=== PATIENT | male | born 1970 | race Caucasian/White ===

== ENCOUNTER 2017-10-30 02:09 | Emergency (ER) | payer OTHER ==
--- NOTE | 2017-10-30 02:39 | ED Physician Documentation ---
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 Denies h/o similar symptoms. Review of Systems Constitutional: denies: Fever, Chills, Sweats Cardiac: reports: Reviewed and negative Respiratory: reports: Reviewed and negative GI: reports: Abdominal Pain. denies: Nausea, Vomiting, Constipation, Diarrhea : denies: Dysuria, Frequency, Hematuria Musculoskeletal: denies: Back pain PD PAST MEDICAL HISTORY - Past Medical History Past Medical History: Yes Psych: Anxiety - Past Surgical History Past Surgical History: No - Present Medications Home Medications: Ambulatory Orders Medication Instructions Recorded Confirmed oxyCODONE/ACET 5/325 [Percocet 5 1 - 2 each PO Q6H PRN #14 tablet 10/30/17 mg/325 mg] - Allergies Allergies/Adverse Reactions: Allergies Allergy/AdvReac Type Severity Reaction Status Date / Time No Known Drug Allergies Allergy Verified 10/30/17 02:14 - Social History Does the pt smoke?: No Smoking Status: Never smoker Does the pt drink ETOH?: Yes Does the pt have substance abuse?: No - Immunizations Immunizations are current?: Yes - POLST Patient has POLST: No PD ED PE NORMAL - Vitals Vital signs reviewed: Yes - General General: Alert and oriented X 3, Well developed/nourished, Other (obvious painful distress) - HEENT HEENT: Moist mucous membranes - Neck Neck: Supple, no meningeal sign - Cardiac Cardiac: RRR, No murmur - Respiratory Respiratory: No respiratory distress, Clear bilaterally - Abdomen Abdomen: Soft, Non tender, Non distended - Derm Derm: Normal color, Warm and dry Results - Vitals Vitals: Vital Signs - 24 hr 10/30/17 10/30/17 10/30/17 02:11 03:11 04:13 Temperature 36.2 C L Heart Rate 78 99 88 Respiratory 18 22 16 Rate Blood Pressure 130/79 158/106 H 153/95 H O2 Saturation 98 97 95 10/30/17 06:29 Temperature Heart Rate 86 Respiratory 16 Rate Blood Pressure 147/98 H O2 Saturation 95 Oxygen O2 Source Room air - Labs Labs: Laboratory Tests 10/30/17 10/30/17 10/30/17 02:38 03:05 03:05 WBC 12.9 H RBC 4.86 Hgb 14.5 Hct 42.3 MCV 87.2 MCH 29.8 MCHC 34.2 RDW 12.8 Plt Count 293 MPV 6.8 L Neut # 8.3 H Lymph # 3.4 [place] # 1.0 Eos # 0.2 Baso # 0.1 Absolute Nucleated RBC 0.00 Nucleated RBC % 0.0 Sodium 139 Potassium 3.4 L Chloride 104 Carbon Dioxide 23 Anion Gap 12.0 BUN 13 Creatinine 1.1 Estimated GFR (MDRD) 72 L Glucose 149 H Calcium 9.3 Total Bilirubin 0.5 AST 40 ALT 79 H Alkaline Phosphatase 61 Total Protein 7.5 Albumin 4.2 Globulin 3.3 Albumin/Globulin Ratio 1.3 Lipase 28 Urine Color YELLOW Urine Clarity CLEAR Urine pH 6.0 Ur Specific [place] 1.025 Urine Protein NEGATIVE Urine Glucose (UA) NEGATIVE Urine Ketones NEGATIVE Urine Occult Blood NEGATIVE Urine Nitrite NEGATIVE Urine Bilirubin NEGATIVE Urine Urobilinogen 0.2 (NORMAL) Ur Leukocyte Esterase NEGATIVE Ur Microscopic Review NOT INDICATED Urine Culture Comments NOT INDICATED - Rads (name of study) RUQ US Radiology: Prelim report reviewed, See rad report CT A/P Radiology: Prelim report reviewed, See rad report PD MEDICAL DECISION MAKING - ED course Complexity details: reviewed results, re-evaluated patient, considered differential, d/w patient ED course: RUQ US reveals large gallstone. Due to the severity of his pain, I also then ordered CT A/P (gallstone could be incidental and differential of such severe pain would include volvulus, AAA). Fortunately, no concerning findings on CT A/ P. Eventually, pain was well controlled after toradol, fentanyl, and dilaudid. He remained awake, alert (was not drowsy). Hospitalization not necessary at this time, as pain is controlled, afebrile, reassuring blood tests, and US and CT do not suggest a process beyond cholelithiasis. Instructed to return immediately if worse in any way or new signs/symptoms develop (such as fever, hematemesis). Departure - Departure Disposition: 01 Home, Self Care Clinical Impression: Biliary colic Condition: Good Instructions: ED Gallstone W Biliary Colic Follow-Up: Sly Murphy MD [Provider Admit Priv/Credential] - (Call to arrange for next available appointment) Prescriptions: oxyCODONE/ACET 5/325 [Percocet 5 mg/325 mg] 1 - 2 each PO Q6H PRN #14 tablet PRN Reason: Pain Discharge Date/Time: 10/30/17 06:29
[2017-10-30 02:42] LABS: BILIRUBIN,URINE NEGATIVE (NEGATIVE); GLUCOSE, URINE (UA) NEGATIVE (NEGATIVE); KETONES,URINE (UA) NEGATIVE (NEGATIVE); LEUKOCYTE ESTERASE, URINE NEGATIVE (NEGATIVE); NITRITE,URINE NEGATIVE (NEGATIVE); OCCULT BLOOD,URINE NEGATIVE (NEGATIVE); PROTEIN,URINE NEGATIVE (NEGATIVE); UROBILINOGEN,URINE 0.2 (NORMAL) E.U./dL (NORMAL)
[2017-10-30 02:45] LABS: CLARITY,URINE CLEAR (CLEAR)
[2017-10-30] MEDS ORDERED: ONDANSETRON 4 MG/2 ML VIAL IVP STA (02:51)
[2017-10-30] MEDS ORDERED: KETOROLAC 60 MG/2 ML VIAL IVP STA (02:51)
[2017-10-30] MEDS ORDERED: SODIUM CHLORIDE 0.9% 1,000 ML IV STA (02:52)
[2017-10-30] MEDS ORDERED: fentaNYL 100 MCG/2 ML VIAL IVP STA (03:02)
[2017-10-30] MEDS ORDERED: fentaNYL 100 MCG/2 ML VIAL ONE (03:11)
[2017-10-30 03:18] LABS: BASOPHILS # (AUTO) 0.1 10^3/uL (0.0-0.1); BASOPHILS % (AUTO) 0.6 %; EOSINOPHILS # (AUTO) 0.2 10^3/uL (0.0-0.7); EOSINOPHILS % (AUTO) 1.4 %; HGB - HEMOGLOBIN 14.5 g/dL (14.0-18.0); LYMPHOCYTES # (AUTO) 3.4 10^3/uL (1.5-3.5); LYMPHOCYTES % (AUTO) 26.4 %; MEAN CORPUSCULAR HEMOGLOBIN 29.8 pg (27.0-31.0); MEAN CORPUSCULAR HGB CONC 34.2 g/dL (32.0-36.0); MEAN CORPUSCULAR VOLUME 87.2 fL (80.0-94.0); MEAN PLATELET VOLUME 6.8 fL (7.4-11.4); MONOCYTES % (AUTO) 7.4 %; NEUTROPHILS # (AUTO) 8.3 10^3/uL (1.5-6.6); NEUTROPHILS % (AUTO) 64.2 %; PLT - PLATELET COUNT 293 10^3/uL (130-450); RED BLOOD COUNT 4.86 10^6/uL (4.70-6.10); RED CELL DISTRIBUTION WIDTH 12.8 % (12.0-15.0); WHITE BLOOD COUNT 12.9 x10^3/uL (4.8-10.8)
[2017-10-30] MEDS ORDERED: HYDROmorphone 2 MG/ML VIAL IVP STA (03:28)
[2017-10-30 03:30] LABS: ALBUMIN 4.2 g/dL (3.2-5.5); ALBUMIN/GLOBULIN RATIO 1.3 (1.0-2.2); BILIRUBIN,TOTAL 0.5 mg/dL (0.2-1.0); CALCIUM 9.3 mg/dL (8.5-10.3); CREATININE 1.1 mg/dL (0.6-1.2); TOTAL PROTEIN 7.5 g/dL (6.7-8.2)
[2017-10-30] MEDS ORDERED: IOPAMIDOL-300 100 ML VIAL ONE (03:52)
[2017-10-30] MEDS ORDERED: IOPAMIDOL-300 100 ML VIAL IVP ONE (04:05)
--- NOTE | 2017-10-30 04:25 | Ultrasound Report ---
EXAM: ABDOMEN ULTRASOUND LIMITED, RUQ EXAM DATE: 10/30/2017 03:08 AM. CLINICAL HISTORY: Abdominal pain in the right upper quadrant COMPARISON: None. TECHNIQUE: Real-time scanning was performed with static images obtained. FINDINGS: Liver: Moderate increased echogenicity. No suspicious focal lesion. Liver measures 17.5 cm in length. Portal Vein: Patent with hepatopetal flow. Gallbladder: The distended gallbladder. There is a gallstone. Borderline gallbladder wall thickening. No definite pericholecystic fluid. Biliary System: CBD measures 4.5 mm. No intrahepatic or extrahepatic ductal dilatation. Pancreas: Normal appearing head and body. Other portions are obscured by overlying structures. Right Kidney: Visualized portions of the right kidney are without significant abnormality. Right kid melecio measures 12.0 cm in length. Other: None. IMPRESSION: 1. Gallstone without cholecystitis or biliary dilation. 2. Moderate hepatic steatosis. 3. There is no hydronephrosis in the visualized portions of the right kidney. [facility] Referring Provider Line: [phone] SITE ID: [id number]
--- NOTE | 2017-10-30 04:42 | CT Report ---
EXAM: CT ABDOMEN AND PELVIS EXAM DATE: 10/30/2017 04:15 AM. CLINICAL HISTORY: Abdominal pain COMPARISONS: Ultrasound earlier this morning TECHNIQUE: Routine helical CT imaging was performed through the abdomen and pelvis. IV contrast: 100M L ISOVUE 300. Enteric contrast: No. Reconstructions: Coronal and sagittal. In accordance with CT protocol optimization, one or more of the following dose reduction techniques w ere utilized for this exam: automated exposure control, adjustment of mA and/or KV based on patient s ize, or use of iterative reconstructive technique. FINDINGS: ABDOMEN: Liver: Moderate hepatic steatosis. Stomach/Distal Esophagus: No significant abnormality. Gallbladder: There is a gallstone within the gallbladder. There is a small nodular abnormality within the gallbladder body/neck region anteriorly (image 28 series 3). This is not evident on the prior ul trasound. This measures up to 10 mm in AP diameter (image 28 series 3). Bile Ducts: No significant abnormality. Pancreas: No significant abnormality. Spleen: No significant abnormality. Kidneys: No suspicious solid appearing lesion. No hydronephrosis. Adrenals: No significant abnormality. Bowel: No obstruction. Average fecal residual. Appendix: Normal. Lymph Nodes: No pathologically enlarged nodes. Vasculature: Normal caliber aorta. Fluid: No significant free fluid. Abdominal Wall: No significant abnormality. Other: No significant abnormality. PELVIS: Prostate and Seminal Vesicles: No significant abnormality. Bladder: No significant abnormality. Lymph Nodes: No pathologically enlarged nodes. Fluid: No significant free fluid. Other: None. BONES: No suspicious bony lesions. LOWER CHEST: No significant consolidation or effusion. Indeterminate posteriorly located subpleural l eft lower lobe nodule measuring 13 mm (image 12 series 3). IMPRESSION: 1. No acute abdominal or pelvic abnormality. 2. Gallstone without evidence of cholecystitis or biliary dilation. 3. Moderate hepatic steatosis. 4. Small 10 mm nodular soft tissue abnormality at the anterior portion of the gallbladder body/neck r egion. Differential diagnosis includes a gallbladder polyp, subtle gallbladder mass, or an adjacent l ymph node. Follow-up gallbladder ultrasound recommended at one month with attention to this area. 5. Indeterminate 13 mm left lower lobe posterior subpleural nodule. This could be further assessed wi th a PET/CT. [facility] Referring Provider Line: [phone] SITE ID: [id number]
[2017-10-30] MEDS ORDERED: oxyCODONE/ACET 5/325 Prepack 4 PO STA (06:21)
[2017-10-30 06:30] VITALS: BP 147/98
== END 2017-10-30 06:29 | disposition home or self-care (01) ==
LOC: ED 02:09
DX: K80.70 Calculus of gallbladder and bile duct without cholecystitis without obstruction (principal); K76.0 Fatty (change of) liver, not elsewhere classified
CPT/HCPCS: 36415; 74177; 76705; 80053; 81003; 83690; 85025; 96361; 96374; 96375; 99283; 99284; J1170; Q9967; 81001; 87086

== ENCOUNTER 2017-11-24 06:29 | Day surgery (SDC) | END 2017-11-24 06:30 | disposition home or self-care (01) | CPT/HCPCS: 47563; 74300; J0690; J1170; J7120; Q9961 ==

== ENCOUNTER 2021-07-07 18:23 | Emergency (ER) | payer OTHER ==
--- NOTE | 2021-07-07 18:47 | ED Physician Documentation ---
History of Present Illness - Stated complaint Stated Complaint: HEADACHE AND HIGH BLOOD PRESSURE - Chief complaint Chief Complaint: Cardiac - Additonal information Additional information: 42-year-old male who has a longstanding history of hypertension presents emergency department for evaluation of a persistent headache for 1 month with some nausea. He began to wonder if his headache was associated with his hypertension and he took his blood pressures at home over the last week and they have been consistently greater than 200 systolic. He denies any abdominal pain. No chest pain, no shortness of breath. No fevers. No unilateral leg swelling. He denies tobacco or vaping. He is a moderate drinker typically consuming 5-6 beers a night. Meds: Amlodipine, atorvastatin Review of Systems Constitutional: reports: Reviewed and negative Eyes: reports: Reviewed and negative Ears: reports: Reviewed and negative Throat: reports: Reviewed and negative Cardiac: denies: Chest pain / pressure, Palpitations, Pedal edema, Calf pain Respiratory: denies: Dyspnea, Cough : reports: Reviewed and negative Skin: reports: Reviewed and negative Musculoskeletal: reports: Reviewed and negative Neurologic: reports: Headache. denies: Focal weakness, Numbness, Difficulty speaking, Syncope, Seizure, Confused, Head injury PD PAST MEDICAL HISTORY - Past Medical History Past Medical History: Yes Cardiovascular: Hypertension, High cholesterol Respiratory: None Endocrine/Autoimmune: None GI: GERD : None Psych: None, Anxiety Musculoskeletal: None Derm: None - Past Surgical History Past Surgical History: No General: Colonoscopy - Present Medications Home Medications: Ambulatory Orders Medication Instructions Recorded Confirmed Amlodipine Besylate/Benazepril 1 each PO DAILY 11/22/17 11/22/17 [Amlodipine-Benazepril 10-20 mg] Atorvastatin [Lipitor] 10 mg PO DAILY 11/22/17 11/22/17 Lisinopril [Zestril] 10 mg PO DAILY #30 tablet 07/07/21 - Allergies Allergies/Adverse Reactions: Allergies Allergy/AdvReac Type Severity Reaction Status Date / Time No Known Drug Allergies Allergy Verified 07/07/21 18:34 - Social History Does the pt smoke?: No Smoking Status: Never smoker Does the pt drink ETOH?: Yes Does the pt have substance abuse?: No - Immunizations Immunizations are current?: Yes - POLST Patient has POLST: No PD ED PE NORMAL - General General: Alert and oriented X 3, No acute distress, Well developed/nourished - HEENT HEENT: Atraumatic, Moist mucous membranes, Pharynx benign - Neck Neck: Supple, no meningeal sign - Cardiac Cardiac: RRR, No murmur - Respiratory Respiratory: No respiratory distress - Abdomen Abdomen: Normal bowel sounds, Soft - Back Back: No CVA TTP - Derm Derm: Normal color, Warm and dry, No rash - Extremities Extremities: No deformity, No tenderness to palpate, Normal ROM s pain - Neuro Neuro: Alert and oriented X 3, 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 Eye Opening: Spontaneous Motor: Obeys Commands Verbal: Oriented GCS Score: 15 Results - Vitals Vitals: Vital Signs - 24 hr 07/07/21 07/07/21 18:30 18:58 Temperature 36.7 C Heart Rate 93 86 Respiratory 16 96 H Rate Blood Pressure 184/115 H 191/132 H O2 Saturation 96 96 Oxygen O2 Source Room air - EKG (time done) 1848 Rate: Rate (enter#) (82) Rhythm: NSR [place]: Normal Intervals: Normal [place] QRS: Normal Ischemia: Normal ST segments Compare to prior EKG: Old EKG unavailable Computer interpretation: Agree with computer - Labs Labs: Laboratory Tests 07/07/21 07/07/21 07/07/21 18:59 18:59 18:59 WBC 7.6 RBC 5.08 Hgb 15.4 Hct 44.4 MCV 87.4 MCH 30.3 MCHC 34.7 RDW 13.0 Plt Count 268 MPV 8.8 Neut # (Auto) 4.7 Lymph # (Auto) 1.9 [place] # (Auto) 0.6 Eos # (Auto) 0.2 Baso # (Auto) 0.1 Absolute Nucleated RBC 0.00 Nucleated RBC % 0.0 Sodium 139 Potassium 3.4 L Chloride 102 Carbon Dioxide 27 Anion Gap 10.0 BUN 22 H Creatinine 1.2 Estimated GFR (MDRD) 65 L Glucose 112 H Calcium 9.0 Total Bilirubin 1.1 H AST 24 ALT 47 Alkaline Phosphatase 66 Troponin I High Sens 5.5 Total Protein 7.2 Albumin 4.0 Globulin 3.2 Albumin/Globulin Ratio 1.3 Lipase 36 - Rads (name of study) CXR Radiology: EMP read contemporaneously (No acute cardiopulmonary process) CT head Radiology: Final report received (No acute intracranial abnormality) PD MEDICAL DECISION MAKING - ED course Complexity details: reviewed results, re-evaluated patient, considered differential, d/w patient ED course: 42-year-old male presents emergency department for evaluation of a headache that he has had fairly persistently for about 1 month. Some associated nausea but no vomiting. No vision changes neck pain or fevers. With this headache he has also noted that his blood pressure has been steadily increasing. Over the last week he has had consistent measures of up to 225 systolic. He does take amlodipine daily but this does not seem to be improving his pressures. He is a moderate to heavy alcohol user typically consuming sixpack of beer nightly. Screening labs today are without acute worrisome findings. His EKG is nonischemic sinus rhythm. High-sensitivity troponin is negative. No abdominal pain was elicited. He has preserved renal function. Given the persistence of headache for more than 1 month we did do a noncontrast CT of the head which showed no acute findings. Patient was given a one-time dose of lisinopril here in the emergency department with a resultant decrease in his blood pressure from 2 25-1 80. Given that his blood pressure is improved I and the markedly elevated blood pressures over the last month I do feel that he would benefit from initiation of a second antihypertensive therefore lisinopril will be started. He does have follow-up with his primary care provider next week. Patient was cautioned about excessive alcohol use. Emergent return precautions were discussed for chest pain, syncope sudden severe headache uncontrolled vomiting or fevers. Departure - Departure Disposition: 01 Home, Self Care Clinical Impression: Hypertension Qualifiers: Hypertension type: unspecified Qualified Code(s): I10 - Essential (primary) hypertension Headache Qualifiers: Headache type: other headache syndrome Qualified Code(s): G44.89 - Other headache syndrome Condition: Stable Record reviewed to determine appropriate education?: Yes Instructions: ED HTN Established Prescriptions: Lisinopril [Zestril] 10 mg PO DAILY #30 tablet Comments: Ricki you are seen in the emergency department today for concerns of elevated blood pressure as well as a headache. Your screening CT of the head was unremarkable. Your EKG and screening labs were also without worrisome findings. You were noted to have a fairly elevated blood pressure of greater than 200. Here in the emergency department we did give you a one-time dose of lisinopril which did reduce your blood pressure to an appropriate though still elevated level. I would [place] day. Please keep a record of your daily blood pressures and take with you to your follow-up appointment with your primary doctor next week. Moderate weight loss will help improve your blood pressure as well as reducing your alcohol intake. If at any point you develop fevers, have sudden severe chest pain, fainting, shortness of air or uncontrolled vomiting then please return immediately to the ER for a second evaluation.
[2021-07-07] MEDS: lisinopriL 5 MG TABLET PO STA (19:00)
[2021-07-07 19:09] LABS: BASOPHILS # (AUTO) 0.1 10^3/uL (0.0-0.1); BASOPHILS % (AUTO) 1.2 %; EOSINOPHILS # (AUTO) 0.2 10^3/uL (0.0-0.7); HCT - HEMATOCRIT 44.4 % (42.0-52.0); HGB - HEMOGLOBIN 15.4 g/dL (14.0-18.0); LYMPHOCYTES # (AUTO) 1.9 10^3/uL (1.5-3.5); LYMPHOCYTES % (AUTO) 25.6 %; MEAN CORPUSCULAR HEMOGLOBIN 30.3 pg (27.0-31.0); MEAN CORPUSCULAR HGB CONC 34.7 g/dL (32.0-36.0); MEAN CORPUSCULAR VOLUME 87.4 fL (80.0-94.0); MEAN PLATELET VOLUME 8.8 fL (7.4-11.4); MONOCYTES # (AUTO) 0.6 10^3/uL (0.0-1.0); MONOCYTES % (AUTO) 8.3 %; NEUTROPHILS # (AUTO) 4.7 10^3/uL (1.5-6.6); NEUTROPHILS % (AUTO) 62.4 %; PLT - PLATELET COUNT 268 10^3/uL (130-450); RED BLOOD COUNT 5.08 10^6/uL (4.70-6.10); WHITE BLOOD COUNT 7.6 x10^3/uL (4.8-10.8)
--- NOTE | 2021-07-07 19:11 | XRAY Report ---
PROCEDURE: Chest 1 View X-Ray INDICATIONS: Chest Pain TECHNIQUE: One view of the chest was acquired. COMPARISON: None. FINDINGS: Surgical changes and devices: None. Lungs and pleura: No pleural effusions or pneumothorax. Lungs are clear. Mediastinum: Mediastinal contours appear normal. Heart size is normal. Bones and chest wall: No suspicious bony lesions. Overlying soft tissues appear unremarkable. IMPRESSION: No acute cardiopulmonary pathology. Reviewed by: Geoff Mccormack MD on 07/07/2021 7:09 PM [facility] Approved by: Geoff Mccormack MD on 07/07/2021 7:09 PM [facility] Station ID: [id number]
[2021-07-07 19:23] LABS: ALBUMIN/GLOBULIN RATIO 1.3 (1.0-2.2); BILIRUBIN,TOTAL 1.1 mg/dL (0.2-1.0); CREATININE 1.2 mg/dL (0.6-1.2); POTASSIUM 3.4 mmol/L (3.5-5.0); TOTAL PROTEIN 7.2 g/dL (6.7-8.2)
--- NOTE | 2021-07-07 19:58 | CT Report ---
PROCEDURE: HEAD WO INDICATIONS: headache with nausea X 1 month TECHNIQUE: Noncontrast 4.5 mm thick angled axial sections acquired from the foramen magnum to the vertex. For r adiation dose reduction, the following was used: automated exposure control, adjustment of mA and/or kV according to patient size. COMPARISON: None. FINDINGS: Image quality: Excellent. CSF spaces: Basal cisterns are patent. No extra-axial fluid collections. Ventricles are normal in size and shape. Brain: No midline shift. No intracranial masses or hemorrhage. Sharp-white matter interface is norm al. Skull and face: Calvarium and visualized facial bones are intact, without suspicious lesions. Sinuses: Visualized sinuses and mastoids are clear. IMPRESSION: No CT evidence of acute intracranial abnormality. Reviewed by: Geoff Mccormack MD on 07/07/2021 7:57 PM PST Approved by: Geoff Mccormack MD on 07/07/2021 7:57 PM PST Station ID: [id number]
[2021-07-07 20:14] VITALS: BP 155/112
== END 2021-07-07 20:29 | disposition home or self-care (01) ==
LOC: ED 18:23
DX: I10 Essential (primary) hypertension (principal); G44.89 Other headache syndrome; R11.0 Nausea
CPT/HCPCS: 36415; 70450; 71045; 80053; 83690; 84484; 85025; 93005; 99284; A9270